=== PATIENT | male | born 1975 | race African-American/Black ===

== ENCOUNTER 2017-05-26 22:44 | Observation (INO) | payer BC ==
[~2017-05-26] VITALS: Ht 188 cm; Wt 132.8 kg
--- NOTE | ~2017-05-26 | EKG ---
PATIENT: JAC LANDRY UNIT #: [id number] Ventricular Rate: 55 BPM Atrial Rate: 55 BPM P-R Interval: 194 ms QRS Duration: 92 ms Q-T Interval: 414 ms QTC Calculation(Bezet): 396 ms P [place]: 43 degrees Calculated R [place]: 76 degrees Calculated T [place]: 36 degrees Diagnosis Line: Sinus bradycardia with sinus arrhythmia Diagnosis Line: Otherwise normal ECG Diagnosis Line: No previous ECGs available Diagnosis Line: Confirmed by QUIN QUEZADA MD ([id number]) on 05/27/2017 Diagnosis Line: 11:09:23 PM INTERPRETING MD: PILAR HAWLEY
--- NOTE | ~2017-05-26 | DS ---
Unit #: [id number] #: [id number] Patient: JAC LANDRY [id number] [facility] [address] [facility]. [place], [place] [address] [id number] MR#: [id number] NAME: JAC LANDRY. ROOM: 562 Age: 41 Sex: M Admission Date: 05/27/2017 : 1975 Discharge Date: 05/27/2017 Attending Physician: Maral Devine M.D. Primary Care Physician: Rogelio Martínez M.D. DISCHARGE SUMMARY REASON FOR ADMISSION Chest pain. HISTORY OF PRESENT ILLNESS/HOSPITAL COURSE The patient is a very pleasant 41-year-old male with a prior history of diabetes type 2, essential hypertension, prior history of nephrectomy/kidney donor, who presented to outside facility with chest pain, nonradiating, substernal in nature. He also complained of shortness of breath with exertion. Subsequently, he was transferred to [facility] for evaluation. His initial coronary artery disease factors included gender, obesity, diabetes, hypertension, as well as family history. He was subsequently admitted. Consultation was placed to Dr. Timmons and associates for evaluation. Patient underwent cardiac catheterization on 05/27/2017. No acute disease process was noted. Diet/medication management was recommended. The patient was cleared from a cardiac standpoint. His cardiac enzymes were otherwise negative through this particular hospital course. His lipid profile yielded an LDL of 75, HDL was decreased at 25, triglycerides 186 and total cholesterol at 137. TSH was noted to be 0.76. At this point in time, the patient is clinically stable for discharge home. He was recommended to begin his Janumet in approximately 48 hours secondary to history of solitary kidney. Recommendation may be given to alternative diabetic medications. However, the decision has been now deferred to the patient's primary care physician. FINAL DISCHARGE DIAGNOSES 1. Chest pain, acute coronary syndrome ruled out. 2. Family history of coronary artery disease. 3. Hypertension. 4. Diabetes. 5. Obesity. 6. History of solitary kidney, status post nephrectomy. Patient is a kidney donor. FINAL DISCHARGE MEDICATIONS 1. Janumet , one tablet p.o. b.i.d. 2. Norvasc 10 mg p.o. daily. 3. Hydrochlorothiazide 25 mg p.o. daily. 4. Toprol XL 50 mg p.o. daily. 5. Recommendation was made for patient to begin aspirin 81 mg p.o. daily Unit #: [id number] #: [id number] Patient: JAC LANDRY on a daily basis. DISCHARGE CONDITION Stable. DISCHARGE DISPOSITION Home. Dictated by... Helio Walton/amanda TD: 05/29/2017 10:38 JOB #: [id number] DISCHARGE SUMMARY Page 1 of 1 X Maral Devine MD X DISCHARGE SUMMARY
--- NOTE | ~2017-05-26 | EKG ---
PATIENT: JAC LANDRY UNIT #: [id number] Ventricular Rate: 56 BPM Atrial Rate: 56 BPM P-R Interval: 190 ms QRS Duration: 94 ms Q-T Interval: 410 ms QTC Calculation(Bezet): 395 ms P [place]: 45 degrees Calculated R [place]: 77 degrees Calculated T [place]: 34 degrees Diagnosis Line: Sinus bradycardia with marked sinus arrhythmia Diagnosis Line: Otherwise normal ECG Diagnosis Line: When compared with ECG of 27-MAY-2017 05:55, Diagnosis Line: (unconfirmed) Diagnosis Line: No significant change was found Diagnosis Line: Confirmed by QUIN QUEZADA MD ([id number]) on 05/27/2017 Diagnosis Line: 11:11:48 PM INTERPRETING MD: PILAR HAWLEY
--- NOTE | ~2017-05-26 | CO ---
Unit #: [id number] #: [id number] Patient: JAC LANDRY [id number] [address] [place], [place] [address] [id number] I MR#: [id number] NAME: JAC LANDRY. ROOM: 562 Age: 41 Sex: M Admission Date: 05/27/2017 : 1975 Attending Physician: Maral Devine M.D. Primary Care Physician: Rogelio Martínez M.D. CONSULTATION REPORT REASON FOR CONSULTATION Chest pain. HISTORY OF PRESENT ILLNESS This is a 41-year-old male, who presented to the emergency room with a complaint of chest pain. He developed substernal chest pain that he describes as sharp, nonradiating to his neck, arm, or jaw [place]. This chest pain lasts for approximately 30 to 40 minutes before resolving. He had intermittent chest pain all day long on Thursday and Thursday, but it was associated with shortness of breath. He denied dizziness, palpitations, or diaphoresis. His chest pain lasts for approximately 10 minutes that occur on exertion. This morning, he went to get ready for work and after he awakened he developed chest pain. He came to the emergency room for evaluation, where his initial troponin was negative. His EKG shows no acute ischemic changes. He has risk factors for ischemic heart disease includes hypertension, diabetes, and nicotine abuse. He also has a family history of premature coronary artery disease. He had a stress test in 2010, which was negative. PAST MEDICAL HISTORY 1. 2D echocardiogram on 10/01/2011 shows an ejection fraction equal to 50% to 55% with moderate concentric left ventricular hypertrophy. There is trace mitral regurgitation and trace tricuspid regurgitation. 2. Exercise Cardiolite stress test on 10/01/2011 shows no ischemia or infarct. 3. Hypertension. 4. Diabetes mellitus, type 2. 5. Obstructive sleep apnea, does not wear CPAP. 6. Nicotine abuse. PAST SURGICAL HISTORY Nephrectomy for donation to his father. 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 He is . He only smokes his cigarettes on occasion. Drinks alcohol socially. Denies illicit drug use. FAMILY HISTORY Father at age 46 from myocardial infarction. ALLERGIES No known drug allergies. Unit #: [id number] #: [id number] Patient: JAC LANDRY HOME MEDICATIONS Janumet mg b.i.d., metoprolol tartrate 50 mg daily, hydrochlorothiazide 25 mg daily, Norvasc 10 mg daily. REVIEW OF SYSTEMS CONSTITUTIONAL: Negative for fever or chills. Reports weakness and fatigue. HEENT: No headache, hearing or vision changes, or difficulty with swallowing. Negative for dizziness. CARDIOVASCULAR: Has chest pain as described in the HPI. Denies palpitations. No paroxysmal nocturnal dyspnea or orthopnea. Denies syncope or near syncope. RESPIRATORY: Has dyspnea that accompanies chest pain. No cough or hemoptysis. GASTROINTESTINAL: No abdominal pain, nausea, or vomiting. No constipation or melena. EXTREMITIES: Negative for lower extremity edema. PHYSICAL EXAMINATION VITAL SIGNS: Blood pressure 126/81, heart rate 66, temperature 98.6. GENERAL: This is a pleasant tall, obese 41-year-old white male, who is in no acute distress. NEUROLOGIC: He is awake, alert, and oriented. There are no focal weaknesses. NECK: Trachea is midline. No thyromegaly or lymphadenopathy. No jugular venous distention. HEART: S1 and S2. Heart sounds are normal. No murmurs. No rubs or clicks. Regular rate and rhythm. LUNGS: Clear without rales, rhonchi, or wheezing. ABDOMEN: Soft and obese with bowel sounds are present. No organomegaly. EXTREMITIES: With palpable pedal pulses and no leg edema. SKIN: Warm and dry. DIAGNOSTIC STUDIES LABORATORY RESULTS: Glucose 181, BUN 11, creatinine 1.1, sodium 139, potassium 4.0. CK total 227, MB 1.0, MB index 0.4, troponin less than 0.03 and 0.01. Urine drug screen, negative. White count 4.0, hemoglobin 12.8, hematocrit 37.2, and platelet count is 165. IMAGING STUDIES: Chest x-ray shows no active disease. CARDIOVASCULAR STUDIES: EKG shows normal sinus rhythm with a rate of 83 beats per minute with small nondiagnostic Q waves noted in the inferior leads. IMPRESSION 1. Unstable angina. 2. Hypertension. 3. Diabetes mellitus, type 2. 4. Obstructive sleep apnea, does wears CPAP. 5. Nicotine abuse. PLAN 1. Cardiology was asked to see the patient for evaluation of chest pain. Because of exertional angina and multiple risk factors for ischemic heart disease, we will recommend cardiac catheterization to evaluate his coronary anatomy. This has been discussed including risks and benefits of Unit #: [id number] #: [id number] Patient: JAC LANDRY bleeding, myocardial infarction, CVA, renal vascular complications, and . The patient is agreeable. 2. Because of the patient has a solitary kidney, no LV-gram will be done. 3. Encourage the patient to quit smoking. 4. Lipid profile and TSH will be done. 5. Further recommendations pending the results of the cardiac catheterization. Thank you for allowing us to assist with this patient's care. Dictated by... David Liriano/marshal TD: 05/28/2017 07:56 JOB #: [id number] CC: Rogelio Martínez M.D. CONSULTATION REPORT Page 1 of 1 X Tyson Anand APRN X CONSULTATION REPORT
--- NOTE | ~2017-05-26 | HP ---
Unit #: [id number] #: [id number] Patient: JAC LANDRY [id number] [address] [place], [place] [address] [id number] I MR#: [id number] NAME: JAC LANDRY. ROOM: 562 Age: 41 Sex: M Admission Date: 05/26/2017 : 1975 Attending Physician: Mariangel Yancey M.D. Primary Care Physician: Rogelio Martínez M.D. HISTORY AND PHYSICAL CHIEF COMPLAINT Chest pain. HISTORY This very pleasant 41-year-old male with AODM, essential hypertension, was transferred from [facility] emergency department for chest pain. The patient states that he was well until four days ago. He began to experience anterior non-radiating substernal chest pain with shortness of breath with exertion. The discomfort was described as somewhat sharp but occurring with exertion, lasting five to ten minutes at a time. Yesterday morning, he awoke with similar chest discomfort. Ultimately, went to [facility] last evening where his EKG and cardiac enzymes are negative. He was given aspirin and nitro paste and sent to this facility for further workup. His CAD risk factors include gender, obesity, diabetes mellitus, hypertension, and premature coronary artery disease. PAST MEDICAL HISTORY 1. AODM x1 year. 2. Hypertension. 3. Patient donated a kidney to his father. ALLERGIES None. HOME MEDICATIONS 1. Janumet 50/100 b.i.d. 2. Norvasc 10 mg daily. 3. Hydrochlorothiazide 25 mg daily. 4. Toprol XL 50 mg daily. FAMILY HISTORY CAD. SOCIAL HISTORY The patient lives with his . Smokes an occasional cigarette, drinks occasional alcohol. REVIEW OF SYSTEMS Notable for chest pain, diabetes, hypertension, nephrectomy. All other systems were reviewed and otherwise negative. PHYSICAL EXAMINATION GENERAL APPEARANCE: Very pleasant, obese, 41-year-old male, currently in Unit #: [id number] #: [id number] Patient: JAC LANDRY no acute distress. VITAL SIGNS: Vital signs prior to transfer - temperature 97.8, pulse 84, respirations 20, blood pressure 153/98. O2 saturation 98% on room air. HEENT: Eyes PERRLA. Extraocular muscles are intact. Pharynx is benign. NECK: Supple without adenopathy or thyromegaly. CHEST: Clear. No chest wall tenderness to palpation. CARDIAC: Normal S1 and S2 without murmur. ABDOMEN: Bowel sounds are present. No hepatosplenomegaly, tenderness or masses. EXTREMITIES: Without C, C or E. Pedal pulses are present. No ulcers on the feet. NEUROLOGIC EXAM: The patient is awake, alert, oriented. Cranial nerves are intact, equal strength throughout. DIAGNOSTIC STUDIES LABORATORY: Labs drawn at [facility] - negative cardiac markers, normal coags. SMA-12 - glucose 272. CBC - hematocrit 39, normal white count, platelet count and MCV. Negative urine tox screen. IMAGING: Chest x-ray - mild cardiomegaly. CARDIOVASCULAR: EKG - sinus rhythm, rate 83, normal appearing. ASSESSMENT 1. Chest pain with both typical and atypical features in patient with multiple CAD risk factors. 2. AODM. 3. Essential hypertension. 4. One kidney: Patient donated a kidney to his father. PLANS 1. Nitro paste and aspirin. 2. IV fluids with sliding scale insulin. 3. Repeat cardiac enzymes and EKG. 4. Cardiology consultation. Dictated by Helio Gonzalez/amanda TD: 05/27/2017 05:53 JOB #: [id number] Unit #: [id number] #: [id number] Patient: JAC LANDRY HISTORY AND PHYSICAL Page 1 of 1 X Mariangel Yancey MD HISTORY AND PHYSICAL
[~2017-05-26 22:44] MED LIST: ATENOLOL PO; HCTZ PO
[2017-05-27] MEDS ORDERED: JANUMET 50-1,01 EACH PO (01:15)
[2017-05-27] MEDS ORDERED: AMLODIPINE BESIL1 GM PO ×2 (01:16→01:18)
[2017-05-27] MEDS ORDERED: HYDROCHLOROTHIA25 MG PO ×2 (01:18→02:04)
[2017-05-27] MEDS ORDERED: LOPRESSOR PO (01:20)
[2017-05-27] MEDS ORDERED: NORVASC10 MG PO ×2 (02:05→02:07)
[2017-05-27 05:14] LABS: BASOPHIL# 0.1 X10e3 (0-0.3); BASOPHIL% 1.5 % (0-2.5); EOSINOPHIL# 0.3 X10e3 (0-0.7); EOSINOPHIL% 7.3 % (0.0-7.0); HEMATOCRIT 37.2 % (38.0-50.0); HEMOGLOBIN 12.8 gm/dL (13.0-16.0); LYMPHOCYTE# 1.7 X10e3 (1.0-3.5); LYMPHOCYTE% 43.3 % (17.0-45.0); MEAN CELL VOLUME 80.9 FL (83-96); MEAN CORPUSCULAR HEMOGLOBIN 27.8 PG (28-34); MEAN CORPUSCULAR HGB CONC 34.3 g/dL (30-36); MEAN PLATELET VOLUME 8.9 FL (6.5-11.5); MONOCYTE# 0.3 X10e3 (0-1.0); MONOCYTE% 8.4 % (3.0-12.0); NEUTROPHIL# 1.6 X10e3 (1.5-7.1); NEUTROPHIL% 39.5 % (40-75); PLATELET COUNT 165 X10e3 (140-420); RED CELL DISTRIBUTION WIDTH 14.3 % (11.0-15.5)
[2017-05-27 05:17] LABS: DIFF IND NO
[2017-05-27 05:22] LABS: INR 1.1; PARTIAL THROMBOPLASTIN TIME 29.9 SECONDS (23.5-31.3); PROTHROMBIN TIME (PATIENT) 11.6 SECONDS (10.0-11.7)
[2017-05-27 06:07] LABS: ALBUMIN SERUM 3.6 g/dL (3.5-5.0); BILIRUBIN,TOTAL 0.2 mg/dL (0.2-2.0); CALCIUM SERUM 9.1 mg/dL (8.4-10.2); CREATININE SERUM 1.1 mg/dL (0.6-1.4); GLOM FILT RATE Estimated 94.8 mL/min (>60); PROTEIN TOTAL SERUM 6.4 g/dL (6.0-8.3)
[2017-05-27 06:11] LABS: %MB 0.4 % (0.0-4.0)
[2017-05-27 08:17] LABS: CHOLESTEROL 137 mg/dL (0-200); HDL CHOLESTEROL 25 mg/dL (29-75); LDL CHOLESTEROL 75 mg/dL (-130); LDL/HDL RATIO 3 RATIO (0-4); TRIGLYCERIDES 186 mg/dL (10-160)
== END 2017-05-27 18:06 | disposition home or self-care (01) | DRG 313 ==
LOC: C5B 22:44 → UNDOADMIN 22:44 → C5B 05-27 03:00 → UNDOADMOB 05-27 03:00 → C5B 05-27 03:00
PROVIDERS: Internal Medicine; Internal Medicine Cardiovascular Disease
DX: R07.89 Other chest pain (principal); I10 Essential (primary) hypertension; E11.9 Type 2 diabetes mellitus without complications; E66.9 Obesity, unspecified; F17.210 Nicotine dependence, cigarettes, uncomplicated; Z82.49 Family history of ischemic heart disease and other diseases of the circulatory system; Z90.5 Acquired absence of kidney; Z79.84 Long term (current) use of oral hypoglycemic drugs; Z79.899 Other long term (current) drug therapy
CPT/HCPCS: 80053; 80061; 82550; 82553; 82947; 84443; 84484; 85025; 85610; 85730; 93005; 99152; C1769; C1887; C1894; G0378; J1644; J2250; J3010